=== PATIENT | female | born 1975 | race Caucasian/White ===

== ENCOUNTER 2017-01-22 15:56 | Emergency (ER) | payer OTHER | END 2017-01-22 17:22 | disposition home or self-care (01) | LOC: ER1 15:56 | DX: S91.232A Puncture wound without foreign body of left great toe with damage to nail, initial encounter (principal); F41.9 Anxiety disorder, unspecified; F17.210 Nicotine dependence, cigarettes, uncomplicated; Z79.899 Other long term (current) drug therapy; W45.8XXA Other foreign body or object entering through skin, initial encounter | CPT/HCPCS: 73630; 90471; 90714; 99283 ==